=== PATIENT | male | born 1990 ===

== ENCOUNTER 2018-10-16 09:48 | Emergency (ER) | payer OTHER ==
[2018-10-16 09:54] VITALS: BP 125/75; PULSE 90; TEMP 98.7; O2SAT 97
[2018-10-16 10:33] VITALS: RESP 19
--- NOTE | 2018-10-16 11:32 | ED PDOC ---
HPI: Skin/Bite Injury Time Seen by Provider: 10/16/18 10:05 Chief Complaint (Nursing): Abnormal Skin Integrity Chief Complaint (Provider): Abnormal Skin Integrity History Per: Patient History/Exam Limitations: no limitations Onset/Duration Of Symptoms: Days (x4) Current Symptoms Are (Timing): Still Present Additional Complaint(s): 27 year old male presents to the emergency department for an evaluation of a bump on his right elbow associated with increasing redness and pain for the past 4 days. He denies any fever, chills, or drainage from affected area. PCP: none provided Past Medical History Reviewed: Historical Data, Nursing Documentation, Vital Signs Vital Signs: Last Vital Signs Temp 98.7 F 10/16/18 09:53 Pulse 90 10/16/18 09:53 Resp 19 10/16/18 09:53 BP 125/75 10/16/18 09:53 Pulse Ox 97 10/16/18 09:53 - Medical History PMH: No Chronic Diseases - Surgical History Surgical History: No Surg Hx - Family History Family History: States: Unknown Family Hx - Home Medications Home Medications: Ambulatory Orders Medication Instructions Recorded Clindamycin [Cleocin] 300 mg PO TID #21 cap 10/16/18 Ibuprofen [Motrin] 600 mg PO Q6 PRN #20 tab 10/16/18 - Allergies Allergies/Adverse Reactions: Allergies Allergy/AdvReac Type Severity Reaction Status Date / Time No Known Allergies Allergy Verified 10/16/18 10:16 Review of Systems ROS Statement: Except As Marked, All Systems Reviewed And Found Negative Constitutional: Negative for: Fever, Chills Musculoskeletal: Positive for: Arm Pain (right elbow with bump and increas redness). Negative for: Other (drainage of right arm wound) Physical Exam - Reviewed Nursing Documentation Reviewed: Yes Vital Signs Reviewed: Yes - Physical Exam Appears: Positive for: Non-toxic, No Acute Distress Head Exam: Positive for: ATRAUMATIC, NORMAL INSPECTION Skin: Positive for: Normal Color, Warm Eye Exam: Positive for: EOMI Extremity: Positive for: Normal ROM (right digits and elbow without joint diffusion), Tenderness (and 15cm area of surrounding erythema to right distal medial aspect of forearm. (-) fluctance. Center of erythema has eschar without draingage or fluctance), Other (right distal medial aspect of forearm with area of 0.5cm induration ) Neurologic/Psych: Positive for: Alert, Oriented. Negative for: Motor/Sensory Deficits (right arm) - ECG O2 Sat by Pulse Oximetry: 97 (RA) Pulse Ox Interpretation: Normal Medical Decision Making Medical Decision Making: Initial Impression: cellulitis of right arm Time: 1030 --Patient refuses any labs to be performed today. There is no indication for I&D. Patient is medically stable and discharged home with a prescription for Cleocin 300mg then advised to follow up with his PCP if symptoms persist or worsen. First dose of antibiotic given in ED. Counseling was provided and all questions were answered regarding diagnosis. There is agreement to discharge plan. Clinical Impression: Cellulitis Scribe Attestation: Documented by Denise Johnson, acting as a scribe for Diane Shrestha MD. Provider Scribe Attestation: All medical record entries made by the Scribe were at my direction and personally dictated by me. I have reviewed the chart and agree that the record accurately reflects my personal performance of the history, physical exam, medical decision making, and the department course for this patient. I have also personally directed, reviewed, and agree with the discharge instructions and disposition. Disposition - Clinical Impression Clinical Impression: Cellulitis - Patient ED Disposition Is Patient to be Admitted: No Counseled Patient/Family Regarding: Studies Performed, Diagnosis, Need For Followup, Rx Given - Disposition Referrals: [facility] [Outside] Disposition: Routine/Home Disposition Time: 10:30 Condition: GOOD Additional Instructions: Return for recheck in 2 days ATIYA ANNE, thank you for letting us take care of you today. Your provider was Diane Shrestha MD and you were treated for RT ARM BUMP/RASH. The emergency medical care you received today was directed at your acute symptoms. If you were prescribed any medication, please fill it and take as directed. It may take several days for your symptoms to resolve. Return to the Emergency Department if your symptoms worsen, do not improve, or if you have any other problems. Please contact your doctor or call one of the physicians/clinics you have been referred to that are listed on the Patient Visit Information form that is included in your discharge packet. Bring any paperwork you were given at discharge with you along with any medications you are taking to your follow up visit. Our treatment cannot replace ongoing medical care by a primary care provider outside of the emergency department. Thank you for allowing the [facility] team to be part of your care today. If you had an X-Ray or CT scan: A Radiologist will review the ED reading if any change in treatment is needed we will contact you. If you had a blood, urine, or wound culture: It will take several days for the results, if any change in treatment is needed we will contact you. If you had an STI test: It will take 48 hours for the results. Please call after 1 week if you have not heard back. Prescriptions: Clindamycin [Cleocin] 300 mg PO TID #21 cap Ibuprofen [Motrin] 600 mg PO Q6 PRN #20 tab PRN Reason: Pain, Moderate (4-7) Instructions: Cellulitis (Skin Infection), Adult (DC) Forms: Taskforce ([place]), [facility] ED School/Work Excuse
== END 2018-10-16 11:54 | disposition home or self-care (01) ==
LOC: H.ER 09:48 → SUPCPDRO 09:48 → H.ER 11:54
DX: L03.113 Cellulitis of right upper limb (principal)